=== PATIENT | male | born 1965 | race Caucasian/White ===

== ENCOUNTER → 2025-05-02 | Outpatient (CLI) | payer OTHER ==
--- NOTE | 2025-05-07 11:15 | CTL ---
EXAMINATION TYPE: CT Low Dose Lung DATE OF EXAM: 05/02/2025 7:57 AM COMPARISON: None. SCREENING VISIT: Initial CT DIAGNOSTIC QUALITY: Satisfactory CLINICAL INDICATION: Male, 59 years old with history of Z12.2 ENCTR LUNG SCRN, Z87.891, former smoker 1 PPD x 35years. quit 4 years ago., Lung cancer screening, History of tobacco use. TECHNIQUE: Low dose computed tomography scan was performed through the chest at 1 mm thick sections a nd reconstructed images in the coronal plane at 1 mm thick sections. Contrast used: mL of , (none if empty) Oral contrast used: (none if empty) CT DLP: 130.8 mGycm, Automated exposure control for dose reduction was used. CT CTDI: 3.3 mGy, Automated exposure control for dose reduction was used. FINDINGS: LUNG NODULES: Present, detailed below: 1. There is a 0.5 cm nodule posterior lateral right lung. Series 4 image 150. 2. There is a 0.6 cm nodule posterior medial left lung base. Series 4 image 272 LUNGS: COPD: Severity: None Fibrosis: Severity: None Lymph nodes: There is a 1.3 cm lymph node in the superior mediastinum. There is a 1.0 cm lymph node i n the pretracheal space.r Other findings: None RIGHT PLEURAL SPACE: Effusion: None Calcification: None Thickening: None Pneumothorax: None LEFT PLEURAL SPACE: Effusion: None Calcification: None Thickening: None Pneumothorax: None HEART: Other: Ascending thoracic aorta at the level the main pulmonary artery measures 3.7 cm. The main pul monary artery at the bifurcation measures 2.8 cm. Heart Size: Normal Coronary calcification: Moderate coronary artery calcifications present. Pericardial effusion: None OTHER FINDINGS: Upper abdomen: Normal Bony thorax: Normal Supraclavicular region: Normal IMPRESSION: Probably benign FOLLOW UP CT CHEST RECOMMENDATION: Follow-up low-dose CT chest [address] LUNG RAD: Lung-Rad 3 Probably [facility], Workstation: [id number], 05/07/2025 11:12 AM
== END | disposition home or self-care (01) ==
LOC: RADCTMAIN 07:21
PROVIDERS: ATTEND Family Medicine
DX: Z12.2 Encounter for screening for malignant neoplasm of respiratory organs (principal); Z87.891 Personal history of nicotine dependence
CPT/HCPCS: 71271